=== PATIENT | female | born 1975 | race Caucasian/White ===

== ENCOUNTER 2016-06-29 22:33 | Emergency (ER) | payer MEDICAID ==
[~2016-06-29] VITALS: Ht 175.3 cm; Wt 113.4 kg
[2016-06-29] MEDS ORDERED: cloNIDine HCL 0.1 MG TAB PO ONE (23:15)
[2016-06-30 08:45] VITALS: BP 152/98
[2016-06-30] MEDS ORDERED: IBUPROFEN 800 MG TAB PO ONE (09:00)
== END 2016-06-30 09:12 | disposition home or self-care (01) ==
LOC: ER 22:43
DX: K04.7 Periapical abscess without sinus (principal); J45.909 Unspecified asthma, uncomplicated; I10 Essential (primary) hypertension; Z88.6 Allergy status to analgesic agent; Z88.8 Allergy status to other drugs, medicaments and biological substances